=== PATIENT | female | born 1980 | race Caucasian/White ===

== ENCOUNTER 2019-07-12 22:36 | Emergency (ER) | payer BC, SELFPAY ==
[2019-07-12] MEDS ORDERED: CEPHALEXIN 250 MG CAP ONE (23:25)
[2019-07-12] MEDS ORDERED: LIDOCAINE 1% MPF 5 ML VIAL ONE (23:25)
--- NOTE | 2019-07-13 00:02 | EDPHYS ---
Physician Documentation [facility] Name: Julia Murillo Age: 39 yrs Sex: Female : 1980 Arrival Date: 07/12/2019 Time: 22:39 Bed 25 Private MD: ED Physician Darrel Alaniz HPI: 07/12 00:04 This 39 yrs old Female presents to ER via Ambulatory with complaints of BUMP kb BACK OF LEG. 00:05 The patient presents with an abscess of the right hamstring. Description: erythematous, kb swollen, warm. Onset: The symptoms/episode began/occurred 3 day(s) ago. Possible cause(s): unknown. Associated signs and symptoms: Pertinent positives: erythema, swelling. Modifying factors: the symptoms are alleviated by nothing, the symptoms are aggravated by pressure, squeezing the lesion and expressing the contents, touching. Severity of symptoms: At their worst the symptoms were moderate, in the emergency department the symptoms are unchanged. The patient has experienced a previous episode. The patient has been recently seen at an urgent care. Pt reports she felt a wound on the back of her leg so she went to on Friday. STates the provider put a needle into the area and put her on bactrim. Pt states the redness has spread and the pain has gotten worse. . FIELD REPORTER: 00:21 LMP N/A - control method ll1 Historical: - Allergies: 07/11 22:53 No Known Allergies; sg - PMHx: 22:53 None; sg - Immunization history:: Adult Immunizations up to date. - Social history:: Smoking status: Patient denies any tobacco usage or history of. ROS: 07/12 00:02 Constitutional: Negative for fever, chills, and weight loss, Cardiovascular: Negative kb for chest pain, palpitations, and edema, Respiratory: Negative for shortness of breath, cough, wheezing, and pleuritic chest pain, Abdomen/GI: Negative for abdominal pain, nausea, vomiting, diarrhea, and constipation, Back: Negative for injury and pain, : Negative for injury, bleeding, discharge, and swelling, MS/Extremity: Negative for injury and deformity, Neuro: Negative for headache, weakness, numbness, tingling, and seizure. Skin: Positive for abscess, of the right hamstring. Exam: 00:02 Constitutional: This is a well developed, well nourished patient who is awake, alert, kb and in no acute distress. Head/Face: Normocephalic, atraumatic. Chest/axilla: Normal chest wall appearance and motion. Nontender with no deformity. No lesions are appreciated. Cardiovascular: Regular rate and rhythm with a normal S1 and S2. No gallops, murmurs, or rubs. Normal PMI, no JVD. No pulse deficits. Respiratory: Lungs have equal breath sounds bilaterally, clear to auscultation and percussion. No rales, rhonchi or wheezes noted. No increased work of breathing, no retractions or nasal flaring. Abdomen/GI: Soft, non-tender, with normal bowel sounds. No distension or tympany. No guarding or rebound. No evidence of tenderness throughout. MS/ Extremity: Pulses equal, no cyanosis. Neurovascular intact. Full, normal range of motion. Neuro: Awake and alert, GCS 15, oriented to person, place, time, and situation. Cranial nerves II-XII grossly intact. Motor strength 5/5 in all extremities. Sensory grossly intact. Cerebellar exam normal. Normal gait. 00:02 Skin: abscess, that is moderate sized, of the right hamstring, with fluctuance, that is mild, with induration, with surrounding cellulitis, that is mild. Vital Signs: 07/11 22:55 BP 135 / 81; Pulse 98; Resp 16; Temp 97.3(O); Pulse Ox 99% on R/A; mt 07/12 00:20 BP 140 / 72; Pulse 97; Resp 16; Pulse Ox 99% ; Pain 2/10; ll1 Procedures: 00:03 I \T\ D: Incision and drainage was performed for an abscess of the right hamstring kb Prepped with Betadine, Anesthetized with 2 ml's 1% Lidocaine. Incised with #11 blade. Drained moderate amount purulent fluid. Dressing: sterile 4x4 gauze, the patient tolerated the procedure well. MDM: 07/11 22:48 Patient medically screened. kb 07/12 00:03 Data reviewed: vital signs, nurses notes. Data interpreted: Pulse oximetry: on room air kb is 99 %. Interpretation: normal. Counseling: I had a detailed discussion with the patient and/or guardian regarding: the historical points, exam findings, and any diagnostic results supporting the discharge/admit diagnosis, the need for outpatient follow up, a family practitioner, a general surgeon, to return to the emergency department if symptoms worsen or persist or if there are any questions or concerns that arise at home. ED course: Pt educated on hot, moist compresses to promote drainage, keeping wound covered and keeping it clean. Pt also educated to continue previously prescribed bactrim.. 07/11 23:11 Order name: I\T\D Setup; Complete Time: 23:24 kb Administered Medications: 07/11 23:24 Drug: KeFLEX 500 mg Route: PO; ll1 23:54 Follow up: Response: No adverse reaction; RASS: Alert and Calm (0) ll1 23:54 Drug: Lidocaine (1 %) 1 vials {Note: Used by CHRISTIANO Corcoran for I\T\D procedure..} ll1 Volume: 5 ml; Route: Infiltration; 23:54 Follow up: Response: No adverse reaction; RASS: Alert and Calm (0) ll1 Disposition: 07/12 00:37 Co-signature as Attending Physician, Darrel Alaniz MD. rn Disposition: 07/13/19 00:01 Discharged to Home. Impression: Cutaneous abscess of right lower limb. - Condition is Stable. - Discharge Instructions: Skin Abscess, [id number], Incision and Drainage, Care After. - Prescriptions for Keflex 500 mg Oral Capsule - take 1 capsule by ORAL route every 8 hours for 10 days; 30 capsule. - Medication Reconciliation Form, Thank You Letter, Antibiotic Education, Prescription Opioid Use, Work release form form. - Follow up: Emergency Department; When: As needed; Reason: Worsening of condition. Follow up: Private Physician; When: 2 - 3 days; Reason: Recheck today's complaints, Continuance of care, Re-evaluation by your physician. - Notes: Continue Bactrim as directed Use hot, moist compresses as discussed Signatures: Ratna Day FNP-C FNP-Tye Aguilera RN RN sg Nieto, Roman, MD MD rn Lewis, Lynsay, RN RN ll1 Corrections: (The following items were deleted from the chart) 00:03 00:02 Skin: abscess, that is moderate sized, of the right hamstring, with induration, kb with surrounding cellulitis, that is mild, kb 00:22 00:01 07/13/2019 00:01 Discharged to Home. Impression: Cutaneous abscess of right lower ll1 limb. Condition is Stable. Forms are Medication Reconciliation Form, Thank You Letter, Antibiotic Education, Prescription Opioid Use. Follow up: Emergency Department; When: As needed; Reason: Worsening of condition. Follow up: Private Physician; When: 2 - 3 days; Reason: Recheck today's complaints, Continuance of care, Re-evaluation by your physician. kb
--- NOTE | 2019-07-13 00:02 | ER ---
Nurse's Notes [facility] Name: Julia Murillo Age: 39 yrs Sex: Female : 1980 Arrival Date: 07/12/2019 Time: 22:39 Bed 25 Private MD: Diagnosis: Cutaneous abscess of right lower limb Presentation: 07/11 22:48 Chief complaint: Patient states: I was seen and treated at urgent care last week for sg what they thought was an abscess on the back of my leg, he poked it with a needle and now the area is still red and painful, not really improving with abx treatment. Coronavirus screen: Proceed with normal triage. Ebola Screen: Patient negative for fever greater than or equal to 101.5 degrees Fahrenheit, and additional compatible Ebola Virus Disease symptoms Patient denies exposure to infectious person. Patient denies travel to an Ebola-affected area in the 21 days before illness onset. No symptoms or risks identified at this time. Initial Sepsis Screen: Does the patient meet any 2 criteria? No. Patient's initial sepsis screen is negative. Does the patient have a suspected source of infection? No. Patient's initial sepsis screen is negative. Risk Assessment: Do you want to hurt yourself or someone else? Patient reports no desire to harm self or others. Onset of symptoms was July 07, 2019. Care prior to arrival: None. Activity prior to arrival: None. Transition of care: patient was not received from another setting of care. 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 - Social history:: Smoking status: Patient denies any tobacco usage or history of. Screenin/12 00:20 Abuse screen: Denies threats or abuse. Nutritional screening: No deficits noted. ll1 Tuberculosis screening: No symptoms or risk factors identified. Fall Risk None identified. Total Jay Fall Scale indicates No Risk (0-24 pts). Assessment: 07/11 23:20 General: Appears in no apparent distress. Behavior is calm, cooperative. Pain: ll1 Complains of pain in right posterior thigh. Neuro: No deficits noted. Cardiovascular: No deficits noted. Respiratory: No deficits noted. GI: No deficits noted. Derm: Wound noted right posterior thigh Abscess located on right posterior thigh is quarter sized, has no drainage, is hot to touch, is red. 07/12 00:10 Reassessment: Patient appears in no apparent distress at this time. Patient and/or ll1 family updated on plan of care and expected duration. Pain level reassessed. Patient is alert, oriented x 3, equal unlabored respirations, skin warm/dry/pink. Vital Signs: 07/11 22:55 BP 135 / 81; Pulse 98; Resp 16; Temp 97.3(O); Pulse Ox 99% on R/A; mt 07/12 00:20 BP 140 / 72; Pulse 97; Resp 16; Pulse Ox 99% ; Pain 2/10; ll1 ED Course: 07/11 22:39 Patient arrived in ED. ag3 22:44 Ratna Day [facility]C [facility] kb 22:44 Darrel Alaniz MD is Attending Physician. kb 22:46 Charla Jones, MEERA is Primary Nurse. ll1 22:51 Triage completed. sg 22:53 Arm band placed on. sg 07/12 00:19 Wound care: to abscess s/p I\T\D located on right posterior thigh was dressed with 4X4s, ll1 Kerlix, ABD pads, Patient tolerated well. 00:21 Patient has correct armband on for positive identification. Bed in low position. Call ll1 light in reach. Side rails up X 1. 00:21 No provider procedures requiring assistance completed. Patient did not have IV access ll1 during this emergency room visit. Administered Medications: 07/11 23:24 Drug: KeFLEX 500 mg Route: PO; ll1 23:54 Follow up: Response: No adverse reaction; RASS: Alert and Calm (0) ll1 23:54 Drug: Lidocaine (1 %) 1 vials {Note: Used by CHRISTIANO Corcoran for I\T\D procedure..} ll1 Volume: 5 ml; Route: Infiltration; 23:54 Follow up: Response: No adverse reaction; RASS: Alert and Calm (0) ll1 Outcome: 07/12 00:01 Discharge ordered by . kb 00:21 Discharged to home ambulatory. ll1 00:21 Condition: stable 00:21 Discharge instructions given to patient, Instructed on discharge instructions, follow up and referral plans. medication usage, wound care, Demonstrated understanding of instructions, follow-up care, medications, wound care, Prescriptions given X 1. 00:22 Patient left the ED. ll1 Signatures: Ratna Day, CONFERENCE PLANNING MANAGER-C CONFERENCE PLANNING MANAGER-CkTye Colón RN RN sg Thompson, Moriah mt Gomez, Alice Charla De Paz RN RN ll1
[2019-07-13 01:42] VITALS: BP 140/72; O2SAT 99
[2019-07-13 01:43] VITALS: TEMP 97.3
== END 2019-07-13 00:22 | disposition home or self-care (01) ==
LOC: ER 22:36
PROC: 0J9N0ZZ Drainage of Right Lower Leg Subcutaneous Tissue and Fascia, Open Approach (ICD-10-PCS; principal; 2019-07-13)
DX: L02.415 Cutaneous abscess of right lower limb (principal)
CPT/HCPCS: 99283